=== PATIENT | female | born 1965 | race Two or more races ===

== ENCOUNTER 2023-07-25 20:18 | Emergency (ER) | payer OTHER ==
[~2023-07-25] VITALS: Ht 167.6 cm; Wt 61.2 kg
[2023-07-25] MEDS ORDERED: ONDANSETRON HCL/PF 4 MG/2 ML VIAL ONE (20:56)
[2023-07-25] MEDS ORDERED: methylPREDNISolone SOD SUCC 125 MG/2ML VIAL ONE (20:56)
[2023-07-25] MEDS ORDERED: diphenhydrAMINE HCL 50 MG/ML VIAL ONE (20:56)
[2023-07-25] MEDS ORDERED: FAMOTIDINE/PF INJ 20 MG/2 ML VIAL IV ONE (20:57)
[2023-07-25] MEDS: IV NS 0.9% 1,000 ML BAG IV ONE (21:03)
[2023-07-25] MEDS: FAMOTIDINE/PF INJ 20 MG/2 ML VIAL IV ONE (21:16)
[2023-07-25] MEDS: ONDANSETRON HCL/PF 4 MG/2 ML VIAL IVP ONE (21:16)
[2023-07-25] MEDS: methylPREDNISolone SOD SUCC 125 MG/2ML VIAL IV ONE (21:16)
[2023-07-25] MEDS: diphenhydrAMINE HCL 50 MG/ML VIAL IV ONE (21:16)
[2023-07-25] MEDS ORDERED: PRED50TA PO (21:52)
[2023-07-25 22:14] VITALS: BP 138/67; TEMP 98.5; O2SAT 99
== END 2023-07-25 22:14 | disposition home or self-care (01) ==
LOC: ER 20:20
DX: L50.9 Urticaria, unspecified (principal); R50.9 Fever, unspecified; T78.1XXA Other adverse food reactions, not elsewhere classified, initial encounter; Z79.899 Other long term (current) drug therapy; Z60.2 Problems related to living alone; Z88.5 Allergy status to narcotic agent; X58.XXXA Exposure to other specified factors, initial encounter
CPT/HCPCS: 99284; 96374; 96375; 96361; J1200; J3490; J2930; J2405; J7030

== ENCOUNTER 2025-08-19 18:29 | Emergency (ER) | payer OTHER ==
[~2025-08-19] VITALS: Ht 165.1 cm; Wt 63.5 kg
[~2025-08-19 18:29] MED LIST: PRED50TA PO
[2025-08-19 18:46] VITALS: TEMP 98.7
[2025-08-19] MEDS ORDERED: IBUPROFEN 400 MG TABLET ONE (19:03)
--- NOTE | 2025-08-19 19:03 | NUR ---
entry level automotive technician at bedside
[2025-08-19] MEDS: IBUPROFEN 400 MG TABLET PO ONE (19:05)
[2025-08-19] MEDS ORDERED: IBUP-1957 PO (19:18)
[2025-08-19] MEDS ORDERED: ACET325C7 PO (19:18)
[2025-08-19] MEDS ORDERED: KETO10TA2 PO (19:57)
[2025-08-19] MEDS: KETOROLAC TROMETHAMINE 15 MG/ML VIAL IM ONE (20:01)
--- NOTE | 2025-08-19 20:01 | NUR ---
Patient discharged to home in stable condition. Written and verbal after care instructions given. Patient verbalizes understanding of instruction.
[2025-08-19 20:03] VITALS: BP 138/77; O2SAT 98
== END 2025-08-19 20:04 | disposition home or self-care (01) ==
LOC: ER 18:43
DX: S92.355A Nondisplaced fracture of fifth metatarsal bone, left foot, initial encounter for closed fracture (principal); Z79.1 Long term (current) use of non-steroidal anti-inflammatories (NSAID); Z79.52 Long term (current) use of systemic steroids; Z88.5 Allergy status to narcotic agent; X50.1XXA Overexertion from prolonged static or awkward postures, initial encounter; Y93.K1 Activity, walking an animal; Y92.89 Other specified places as the place of occurrence of the external cause; Y99.9 Unspecified external cause status
CPT/HCPCS: 73610-TC; 73630-TC